=== PATIENT | female | born 1980 | race American Indian/Alaskan Native ===

== ENCOUNTER 2019-07-27 09:30 | Emergency (ER) | payer SELFPAY ==
[2019-07-27 09:37] VITALS: BP 122/53
[2019-07-27] MEDS ORDERED: SODIUM CHLORIDE 0.9% 1000 ML 1,000 ML IV ONE (10:15)
[2019-07-27] MEDS ORDERED: ONDANSETRON 4 MG/2 ML INJ IV ONE (10:15)
[2019-07-27] MEDS ORDERED: FAMOTIDINE 20 MG/2 ML INJ IV ONE (10:15)
[2019-07-27] MEDS ORDERED: KETOROLAC 30 MG/1 ML INJ IV ONE (10:15)
--- NOTE | 2019-07-27 10:21 | Emergency Department Report ---
ED Abdominal Pain HPI - General Chief Complaint: Abdominal Pain Stated Complaint: STOMACH PAIN Time Seen by Provider: 07/27/19 10:14 Source: patient Mode of arrival: Ambulatory Limitations: No Limitations - History of Present Illness Initial Comments: CC: "I am having an IBS flare." HPI: Mrs. Cline is a 39 yo female with hx of IBS since age 15. She presents with severe abdominal cramping, bloating, diarrhea, constipation and nausea. She has required multiple hospital admissions in her hometown [place] for severe IBS. She was even considered for a feeding tube. She has had exploratory surgery to secure the diagnosis. She feels that stress and food triggered this exacerbation. Tried clear liquid diet to treat symptoms. hx of hysterectomy MD Complaint: abdominal pain -: Gradual, days(s) (3) Location: diffuse Severity: severe Severity scale (0 -10): 8 Quality: cramping Consistency: constant Improves With: nothing Worsens With: other (food intake) Associated Symptoms: nausea, diarrhea, constipation - Related Data Previous Rx's Medication Instructions Recorded Last Taken Type Dicyclomine [Bentyl] 20 mg PO QID #56 tablet 07/27/19 Unknown Rx Promethazine [Phenergan] 25 mg PO Q6HR PRN #10 tab 07/27/19 Unknown Rx Allergies Allergy/AdvReac Type Severity Reaction Status Date / Time No Known Allergies Allergy Unverified 07/27/19 09:32 ED Review of Systems ROS: Stated complaint: STOMACH PAIN Other details as noted in HPI Comment: All other systems reviewed and negative Constitutional: denies: fever, malaise Gastrointestinal: abdominal pain, nausea, diarrhea, constipation Genitourinary: denies: urgency, dysuria Musculoskeletal: denies: back pain ED Past Medical Hx - Past Medical History Additional medical history: IBS - Surgical History Additional Surgical History: hyterectomy, achile tendon - Social History Smoking Status: Never Smoker Substance Use Type: Alcohol - Medications Home Medications: Home Medications Medication Instructions Recorded Confirmed Last Taken Type Dicyclomine [Bentyl] 20 mg PO QID #56 tablet 07/27/19 Unknown Rx Promethazine [Phenergan] 25 mg PO Q6HR PRN #10 tab 07/27/19 Unknown Rx ED Physical Exam - General Limitations: No Limitations General appearance: alert, in no apparent distress, other (healthy in appearance) - Head Head exam: Present: atraumatic, normocephalic - Eye Eye exam: Present: normal appearance - ENT ENT exam: Present: mucous membranes moist - Neck Neck exam: Present: normal inspection, full ROM - Respiratory Respiratory exam: Present: normal lung sounds bilaterally. Absent: respiratory distress, wheezes, rales, rhonchi - Cardiovascular Cardiovascular Exam: Present: regular rate, normal rhythm, normal heart sounds. Absent: systolic murmur, diastolic murmur, rubs, gallop - GI/Abdominal GI/Abdominal exam: Present: soft, normal bowel sounds. Absent: distended, tenderness, guarding, rebound - Extremities Exam Extremities exam: Present: normal inspection - Back Exam Back exam: Present: normal inspection - Neurological Exam Neurological exam: Present: alert, oriented X3 - Psychiatric Psychiatric exam: Present: normal affect, normal mood - Skin Skin exam: Present: warm, dry, intact, normal color. Absent: rash ED Course Vital Signs 07/27/19 09:36 Temperature 98.6 F Pulse Rate 65 Respiratory 18 Rate Blood Pressure 122/53 O2 Sat by Pulse 97 Oximetry ED Medical Decision Making - Lab Data Result diagrams: 07/27/19 10:41 07/27/19 10:41 - Medical Decision Making IBS exacerbation without indication of obstruction, appendicitis, biliary colic on today's presentation. She was provided supportive care with IVF and IV meds CBC chemistry complete metabolic panel urinalysis is all within normal limits. Recommended clear liquid diet. Given a referral [facility]. Prescribed promethazine and Bentyl she has had successful relief of her symptoms and previous times with Bentyl. She is also use Linzesse in the past. Critical care attestation.: If time is entered above; I have spent that time in minutes in the direct care of this critically ill patient, excluding procedure time. ED Disposition Clinical Impression: Acute abdominal pain, Irritable bowel syndrome Disposition: -01 TO HOME OR SELFCARE Is pt being admited?: No Does the pt Need Aspirin: No Condition: Stable Instructions: Abdominal Pain (ED), Irritable Bowel Syndrome (ED) Prescriptions: Dicyclomine [Bentyl] 20 mg PO QID #56 tablet Promethazine [Phenergan] 25 mg PO Q6HR PRN #10 tab PRN Reason: Nausea Referrals: [facility] [Outside] - 3-5 Days Forms: Work/School Release Form(ED)
[2019-07-27 10:45] LABS: Bacteria,Urine 1+ /HPF (Negative); Bilirubin,Urine NEG (Negative); Blood,Urine NEG (Negative); Color,Urine Straw (Yellow); Mucus,Urine FEW /HPF; Protein,Urine <15 mg/dL mg/dL (Negative); Urobilinogen,Urine < 2.0 mg/dL (<2.0)
[2019-07-27 11:01] LABS: Basophils # (Auto) 0.1 K/mm3 (0.0-0.1); Basophils % (Auto) 1.2 % (0.0-1.8); Eosinophils # (Auto) 0.1 K/mm3 (0.0-0.4); Eosinophils % (Auto) 2.7 % (0.0-4.3); Hematocrit 33.5 % (30.3-42.9); Hemoglobin 10.6 gm/dl (10.1-14.3); Lymphocytes # (Auto) 1.8 K/mm3 (1.2-5.4); Lymphocytes % (Auto) 43.5 % (13.4-35.0); Mean Corpuscular HGB Conc 32 % (30-34); Mean Corpuscular Volume 77 fl (79-97); Monocytes # (Auto) 0.3 K/mm3 (0.0-0.8); Monocytes % (Auto) 6.8 % (0.0-7.3); Platelet Count 273 K/mm3 (140-440); Red Blood Count 4.35 M/mm3 (3.65-5.03); Red Cell Distribution Width 13.1 % (13.2-15.2)
[2019-07-27 11:13] LABS: Alanine Aminotransferase 11 units/L (7-56); Albumin 4.3 g/dL (3.9-5); BUN/Creatinine Ratio 11; Blood Urea Nitrogen 8 mg/dL (7-17); Hemolysis Index 12
[2019-07-27 11:20] LABS: Bilirubin,Direct < 0.2 mg/dL (0-0.2)
== END 2019-07-27 12:10 | disposition home or self-care (01) ==
LOC: ED 09:30
DX: K58.9 Irritable bowel syndrome, unspecified (principal)
CPT/HCPCS: 36415; 80048; 80076; 81001; 83690; 85025; 96361; 96374; 96375; 99283; J1885; J2405; J7030